=== PATIENT | female | born 1995 | race Caucasian/White ===

== ENCOUNTER 2023-07-22 17:43 | Emergency (ER) | payer MEDICAID ==
[~2023-07-22] VITALS: Ht 162.6 cm; Wt 99.8 kg
[2023-07-22 19:24] VITALS: BP_SYST 127; PULSE 75; RESP 19; TEMP 97.8; O2SAT 96
[2023-07-22 23:27] LABS: CLARITY/URINE CLEAR (CLEAR); COLOR,URINE YELLOW (YELLOW); PROTEIN URINE NEGATIVE (NEGATIVE); UROBILINOGEN,URINE 0.2 (0.2-1.0)
[2023-07-22 23:29] LABS: BILIRUBIN,URINE NEGATIVE (NEGATIVE); BLOOD, URINE NEGATIVE (NEGATIVE); GLUCOSE,URINE NEGATIVE (NEGATIVE); KETONES,URINE NEGATIVE (NEGATIVE); LEUKOCYTE ESTERASE ,URINE NEGATIVE (NEGATIVE); NITRITE, URINE NEGATIVE (NEGATIVE)
[2023-07-23] MEDS ORDERED: KETOROLAC TROMETHAMINE 30 MG VIAL IM ONE (01:00)
[2023-07-23] MEDS ORDERED: CLOB15OI17 TP (02:00)
[2023-07-23 02:22] VITALS: BP_SYST 118; PULSE 69; RESP 20; TEMP 98.2; O2SAT 99
== END 2023-07-23 02:22 | disposition home or self-care (01) ==
LOC: SED 17:43
DX: L90 Atrophic disorders of skin (principal); R10.2 Pelvic and perineal pain; N89.8 Other specified noninflammatory disorders of vagina; Z79.899 Other long term (current) drug therapy
CPT/HCPCS: 99285; 76830; 76857; 81001; 87210; 36415; 81025; 87491; 81003; 96372; J1885